=== PATIENT | female | born 2000 | race Caucasian/White ===

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

== ENCOUNTER → 2023-12-05 | Outpatient (CLI) | payer BC ==
[2024-01-09 17:28] LABS: HEPATITIS B SURFACE ANTIBODY AMS
== END ==
LOC: LAB 10:25
PROVIDERS: Family Medicine
DX: Z76.89 Persons encountering health services in other specified circumstances (principal)